=== PATIENT | female | born 1970 | race Caucasian/White ===

== ENCOUNTER → 2024-02-11 10:28 | Outpatient (REF) | payer OTHER, SELFPAY | LOC: RAD 10:28 | PROVIDERS: ATTENDING PHYSICIAN Nurse Practitioner Family | DX: R51.9 Headache, unspecified (principal) | CPT/HCPCS: 70450 ==

== ENCOUNTER → 2024-05-02 12:39 | Outpatient (REF) | payer OTHER, SELFPAY | LOC: WDC 12:39 | PROVIDERS: ATTENDING PHYSICIAN Nurse Practitioner Family | DX: Z12.31 Encounter for screening mammogram for malignant neoplasm of breast (principal) | CPT/HCPCS: 77063; 77067 ==

== ENCOUNTER → 2024-05-24 10:00 | Outpatient (REF) | payer OTHER, SELFPAY | LOC: RCS 10:00 | PROVIDERS: ATTENDING PHYSICIAN Nurse Practitioner Family | DX: R07.9 Chest pain, unspecified (principal) | CPT/HCPCS: 93017 ==